=== PATIENT | male | born 1965 | race American Indian/Alaskan Native ===

== ENCOUNTER 2017-04-23 21:52 | Emergency (ER) | payer MEDICAID ==
[~2017-04-23] VITALS: Ht 165.1 cm; Wt 70.0 kg
[2017-04-23 21:55] VITALS: BP 139/83
== END 2017-04-24 02:06 | disposition home or self-care (01) ==
LOC: ED 04-24 01:38
DX: F10.120 Alcohol abuse with intoxication, uncomplicated (principal)
CPT/HCPCS: 99283

== ENCOUNTER 2017-09-16 02:28 | Emergency (ER) | payer MEDICAID ==
[~2017-09-16] VITALS: Ht 172.7 cm; Wt 59.0 kg
[2017-09-16 02:30] VITALS: BP 129/83
== END 2017-09-16 03:32 | disposition home or self-care (01) ==
LOC: ED 02:48
DX: F41.1 Generalized anxiety disorder (principal); F29 Unspecified psychosis not due to a substance or known physiological condition; M54.9 Dorsalgia, unspecified; G89.29 Other chronic pain
CPT/HCPCS: 99284

== ENCOUNTER 2017-09-29 13:34 | Emergency (ER) | payer MEDICAID ==
[~2017-09-29] VITALS: Ht 165.1 cm; Wt 55.0 kg
[2017-09-29] MEDS ORDERED: SODIUM CHLORIDE 0.9% 1,000ML IVBOLUS ONE (15:00)
[2017-09-29] MEDS ORDERED: AZITHROMYCIN 250 MG TABLET ONE (15:00)
[2017-09-29] MEDS ORDERED: AZITHROMYCIN 500 MG TABLET PO ONE (15:00)
[2017-09-29] MEDS ORDERED: CEFTRIAXONE PMX 1GM/50ML 50 ML IVPB ONE (15:00)
[2017-09-29] MEDS ORDERED: CEFTRIAXONE PMX 1GM/50ML 50 ML ONE (15:00)
[2017-09-29 16:23] VITALS: BP 122/72
== END 2017-09-29 17:34 | disposition home or self-care (01) ==
LOC: ED 17:08
DX: J18.9 Pneumonia, unspecified organism (principal); F41.9 Anxiety disorder, unspecified; M19.90 Unspecified osteoarthritis, unspecified site; F17.200 Nicotine dependence, unspecified, uncomplicated
CPT/HCPCS: 71045; 93005; 96365; 99284; J0696; J7030

== ENCOUNTER 2017-10-25 15:54 | Emergency (ER) | payer MEDICAID ==
[~2017-10-25] VITALS: Ht 177.8 cm; Wt 78.3 kg
[2017-10-25 17:07] VITALS: BP 108/82
== END 2017-10-25 19:44 | disposition home or self-care (01) ==
LOC: EDBD 15:54 → MERGE 15:54 → ED 19:24
DX: F10.120 Alcohol abuse with intoxication, uncomplicated (principal)
CPT/HCPCS: 99283

== ENCOUNTER 2017-11-18 20:22 | Emergency (ER) | payer MEDICAID ==
[~2017-11-18] VITALS: Ht 165.1 cm; Wt 57.4 kg
[2017-11-18 20:27] VITALS: BP 124/81
== END 2017-11-18 22:49 | disposition home or self-care (01) ==
LOC: ED 22:23
DX: T33.829A Superficial frostbite of unspecified foot, initial encounter (principal); M54.9 Dorsalgia, unspecified; G89.29 Other chronic pain; Z59.0 Homelessness; E11.9 Type 2 diabetes mellitus without complications; F10.20 Alcohol dependence, uncomplicated; F41.9 Anxiety disorder, unspecified; X31.XXXA Exposure to excessive natural cold, initial encounter; Y93.89 Activity, other specified; Y99.8 Other external cause status; Y92.89 Other specified places as the place of occurrence of the external cause
CPT/HCPCS: 99284

== ENCOUNTER 2017-12-02 17:53 | Emergency (ER) | payer MEDICAID ==
[~2017-12-02] VITALS: Ht 167.6 cm; Wt 57.5 kg
[2017-12-02 17:55] VITALS: BP 146/96
[2017-12-02] MEDS ORDERED: LIDOCAINE-MPF 1%, 5ML INFIL ONE (18:30)
[2017-12-02] MEDS ORDERED: DIPH,PERTUSS(ACELL),TET VAC/PF 0.5 ML IM-VACC ONE (18:30)
[2017-12-02] MEDS ORDERED: BACITRACIN ZINC OINT 500U/GM, 0.9 GM ONE (21:11)
== END 2017-12-02 22:13 | disposition home or self-care (01) ==
LOC: ED 21:03
DX: S01.412A Laceration without foreign body of left cheek and temporomandibular area, initial encounter (principal); F10.220 Alcohol dependence with intoxication, uncomplicated; I10 Essential (primary) hypertension; G89.29 Other chronic pain; M19.90 Unspecified osteoarthritis, unspecified site; F17.200 Nicotine dependence, unspecified, uncomplicated; X58.XXXA Exposure to other specified factors, initial encounter; Y93.89 Activity, other specified; Y92.488 Other paved roadways as the place of occurrence of the external cause; Y99.8 Other external cause status
CPT/HCPCS: 12011; 70450; 70486; 99284

== ENCOUNTER 2017-12-09 03:32 | Emergency (ER) | payer MEDICAID ==
[~2017-12-09] VITALS: Ht 165.1 cm; Wt 59.2 kg
[2017-12-09 04:43] VITALS: BP 135/75
== END 2017-12-09 04:45 | disposition home or self-care (01) ==
LOC: ED 04:39
DX: F10.229 Alcohol dependence with intoxication, unspecified (principal); I10 Essential (primary) hypertension
CPT/HCPCS: 99281

== ENCOUNTER 2018-03-16 05:25 | Emergency (ER) | payer MEDICAID ==
[~2018-03-16] VITALS: Ht 175.3 cm; Wt 69.0 kg
[2018-03-16 08:41] VITALS: BP 122/71
== END 2018-03-16 10:10 | disposition home or self-care (01) ==
LOC: ED 06:09
DX: F10.220 Alcohol dependence with intoxication, uncomplicated (principal); I10 Essential (primary) hypertension; G89.29 Other chronic pain; Z79.899 Other long term (current) drug therapy
CPT/HCPCS: 36415; 70450; 72020; 72050; 80307; 99285

== ENCOUNTER 2018-03-23 19:00 | Emergency (ER) | payer MEDICAID ==
[~2018-03-23] VITALS: Ht 170.2 cm; Wt 66.0 kg
[2018-03-23 23:32] VITALS: BP 112/81
== END 2018-03-23 23:38 | disposition home or self-care (01) ==
LOC: ED 19:47
DX: F10.220 Alcohol dependence with intoxication, uncomplicated (principal); G31.2 Degeneration of nervous system due to alcohol; Z79.899 Other long term (current) drug therapy
CPT/HCPCS: 36415; 80307; 99283

== ENCOUNTER 2018-03-25 05:19 | Emergency (ER) | payer MEDICAID ==
[~2018-03-25] VITALS: Ht 165.1 cm; Wt 54.5 kg
[2018-03-25 05:32] VITALS: BP 97/79
== END 2018-03-25 06:09 | disposition home or self-care (01) ==
LOC: ED 06:02
DX: R42 Dizziness and giddiness (principal); I10 Essential (primary) hypertension
CPT/HCPCS: 93005; 99283

== ENCOUNTER 2019-02-20 21:37 | Emergency (ER) | payer MEDICAID ==
[~2019-02-20] VITALS: Ht 165.1 cm; Wt 62.0 kg
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
[2019-02-20] MEDS ORDERED: LIDOCAINE 2%, 20ML INFIL ONE (22:00)
[2019-02-20] MEDS ORDERED: LIDOCAINE-MPF 1%, 5ML ONE (22:06)
--- NOTE | 2019-02-20 22:12 | NUR ---
PT TO CT
[2019-02-20] MEDS ORDERED: PLEASE ENTER HEIGHT AND WEIGHT MC SCH (22:30)
[2019-02-20 22:42] VITALS: BP 119/81
--- NOTE | 2019-02-20 22:43 | NUR ---
PT RESTING CALMLY, MONITORS IN PLACE, CALL LIGHT WITHIN REACH. AWAITING CT RESULTS
== END 2019-02-20 23:30 | disposition home or self-care (01) ==
LOC: ED 23:23
DX: S06.0X0A Concussion without loss of consciousness, initial encounter (principal); S01.511A Laceration without foreign body of lip, initial encounter; I10 Essential (primary) hypertension; F17.200 Nicotine dependence, unspecified, uncomplicated; Y04.8XXA Assault by other bodily force, initial encounter; Y93.89 Activity, other specified; Y92.89 Other specified places as the place of occurrence of the external cause; Y99.8 Other external cause status
CPT/HCPCS: 12051; 70450; 70486; 72125; 99285

== ENCOUNTER 2019-04-16 16:01 | Emergency (ER) | payer MEDICAID ==
[~2019-04-16] VITALS: Ht 165.1 cm; Wt 52.0 kg
[2019-04-16 18:06] VITALS: BP 114/83
== END 2019-04-16 18:10 | disposition home or self-care (01) ==
LOC: ED 18:00
DX: G89.11 Acute pain due to trauma (principal); M25.551 Pain in right hip; F17.200 Nicotine dependence, unspecified, uncomplicated; W18.30XA Fall on same level, unspecified, initial encounter; Y93.89 Activity, other specified; Y92.410 Unspecified street and highway as the place of occurrence of the external cause; Y99.8 Other external cause status
CPT/HCPCS: 99283

== ENCOUNTER 2019-09-21 10:41 | Emergency (ER) | payer MEDICAID ==
[~2019-09-21] VITALS: Ht 165.1 cm; Wt 54.0 kg
--- NOTE | 2019-09-21 10:54 | NUR ---
LILA. REPORT RECEIVED FROM EMS. PT C/O LEFT SIDED AGUILAR SINCE THIS AM. DENIES N/V/D. PT'S AOX4. RESPS EVEN AND UNLABORED. BP/SPO2 MONITORS IN PLACE. CALL LIGHT WITHIN REACH.
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
[2019-09-21] MEDS ORDERED: MECLIZINE CHEWABLE 25 MG TAB ONE (11:26)
--- NOTE | 2019-09-21 11:29 | NUR ---
pt medicated per emar. pt tolerated well.
[2019-09-21] MEDS ORDERED: MECLIZINE CHEWABLE 25 MG TAB PO ONE (11:30)
--- NOTE | 2019-09-21 11:37 | NUR ---
PT MEDICATED PER EMAR. PT TOLERATED WELL.
--- NOTE | 2019-09-21 11:37 | NUR ---
Note shira in EDM - 09/21/19 at 1144 by CIRILO PT REQUESTING WATER/FOOD. THIS RN ASKED EDMD AND EDMD SAID NO WATER/FOOD AT THIS TIME. PT NOTIFIED.
[2019-09-21 11:39] LABS: BASOPHILS # (AUTO) 0.02 x10^3/uL (0-0.1); BASOPHILS % (AUTO) 1 % (0-1); EOSINOPHILS # (AUTO) 0.01 x10^3/uL (0-0.4); EOSINOPHILS % (AUTO) 0 % (1-7); LYMPHOCYTES # (AUTO) 0.89 x10^3/uL (1-3.4); LYMPHOCYTES % (AUTO) 18 % (22-44); MD NO; MEAN CORPUSCULAR HEMOGLOBIN 34.9 pg (27.5-34.5); MEAN CORPUSCULAR VOLUME 102.6 fL (81-97); MONOCYTES # (AUTO) 0.28 x10^3/uL (0.2-0.8); MONOCYTES % (AUTO) 6 % (2-9); NEUTROPHILS % (AUTO) 76 % (42-75); PLATELET COUNT 299 x10^3/uL (130-400); RED BLOOD COUNT 4.15 x10^6/uL (4.38-5.82); RED CELL DISTRIBUTION WIDTH 15.5 % (9.4-14.8)
--- NOTE | 2019-09-21 11:44 | NUR ---
URINAL AT BEDSIDE. THIS RN ASKED URINE SAMPLE. PT STATES "I CAN'T PEE. I NEED FOOD AND WATER." THIS RN ASKED EDMD AND EDMD SAID NO FOOD/WATER AT THIS TIME. PT NOTIFIED. PT STATES " I CAN'T PEE." EDMD NOTIFIED.
[2019-09-21 11:47] LABS: ALBUMIN 3.6 g/dL (3.4-5.0); ANION GAP 6 mmol/L (5-15); CALCIUM 8.6 mg/dL (8.5-10.1); CHLORIDE 111 mmol/L (98-107); CREATININE 0.68 mg/dL (0.7-1.3)
--- NOTE | 2019-09-21 12:21 | NUR ---
PT IN CT AT THIS TIME.
--- NOTE | 2019-09-21 12:57 | NUR ---
PT PROVIDED URINE SAMPLE AT THIS TIME. UA SENT.
--- NOTE | 2019-09-21 13:13 | NUR ---
PT RUDE AND ARGUING WITH THIS RN. PT KEEPS SAYING"I NEED FOOD AND WATER". PT BEING EDUCATED REGARDING WANTING FOOD/WATER.
[2019-09-21 13:18] LABS: AMPHETAMINE SCREEN, URINE Negative (Negative); BARBITURATE SCREEN, URINE Negative (Negative); BENZODIAZEPINE SCREEN, URINE Negative (Negative); CANNABINOID SCREEN, URINE Positive (Negative); COCAINE SCREEN, URINE Negative (Negative); METHADONE SCREEN, URINE Negative (Negative); OPIATE SCREEN, URINE Negative (Negative)
[2019-09-21 13:46] VITALS: BP 124/76
--- NOTE | 2019-09-21 14:06 | NUR ---
Patient given discharge instructions and they have confirmed that they understand the instructions. Patient ambulatory with steady gait. pt didin't wanna leave and change. security paged. pt amb to exit with security.
== END 2019-09-21 14:08 | disposition home or self-care (01) ==
LOC: ED 14:02
DX: R51 Headache (principal); R42 Dizziness and giddiness; I10 Essential (primary) hypertension; M19.90 Unspecified osteoarthritis, unspecified site; F17.200 Nicotine dependence, unspecified, uncomplicated; Z72.9 Problem related to lifestyle, unspecified; Z87.01 Personal history of pneumonia (recurrent)
CPT/HCPCS: 36415; 70450; 80048; 80307; 82040; 85025; 93005; 99284

== ENCOUNTER 2021-02-10 06:40 | Inpatient (IN) | payer MEDICAID ==
[~2021-02-10] VITALS: Ht 165.1 cm; Wt 55.2 kg
[2021-02-10 07:25] LABS: BASOPHILS % (AUTO) 1 % (0-1); EOSINOPHILS % (AUTO) 1 % (1-7); LYMPHOCYTES % (AUTO) 13 % (22-44); MD NO; MEAN CORPUSCULAR HEMOGLOBIN 32.2 pg (27.5-34.5); MEAN CORPUSCULAR HGB CONC 34.2 g/dL (33.2-36.2); MEAN PLATELET VOLUME 6.6 fL (7.4-10.4); MONOCYTES % (AUTO) 7 % (2-9); NEUTROPHILS % (AUTO) 79 % (42-75); PLATELET COUNT 300 x10^3/uL (130-400); RED BLOOD COUNT 4.25 x10^6/uL (4.38-5.82); RED CELL DISTRIBUTION WIDTH 14.1 % (9.4-14.8)
[2021-02-10 07:37] LABS: ALANINE AMINOTRANSFERASE 18 U/L (12-78); ALBUMIN 4.2 g/dL (3.4-5.0); ANION GAP 8 mmol/L (5-15); CALCIUM 9.3 mg/dL (8.5-10.1); CHLORIDE 105 mmol/L (98-107); SALICYLATE LEVEL < 1.7 mg/dL (2.8-20.0)
[2021-02-10 07:39] LABS: ALKALINE PHOSPHATASE 87 U/L (45-117); BILIRUBIN,TOTAL 0.7 mg/dL (0.2-1.0); CREATININE 0.78 mg/dL (0.7-1.3); TOTAL PROTEIN 7.9 g/dL (6.4-8.2)
--- NOTE | 2021-02-10 08:31 | NUR ---
pt ambulated to bathroom and back with use of walker and standby assist. pt agitated easily and resistant to care.
[2021-02-10] MEDS ORDERED: SODIUM CHLORIDE 0.9% 1,000ML IVBOLUS ONE (11:00)
--- NOTE | 2021-02-10 11:50 | NUR ---
PT REFUSED IV AND IVF AT THIS TIME.
--- NOTE | 2021-02-10 12:11 | NUR ---
UPON ENTRY TO PT ROOM FLOOR HAS FLUID ON FLOOR. PT REPORTS "ILL JUST PISS AND SHIT ON THE FLOOR" PT REPEATEDLY DEMANDS FOOD AND DRINK. AGITATED. PT NOT REASSURABLE. DISCUSSED POC. PT REFUSES IV/IVF AGAIN. AWAITING FURTHER DIETARY ORDERS AT THIS TIME
--- NOTE | 2021-02-10 12:34 | NUR ---
PT REPEATEDLY PUSHING CALL LIGHT. PT AGITATED REPEATEDLY ASKING FOR FOOD AND WATER. PT DOES NOT RESPOND WELL TO REASSURANCE. WATER PROVIDED PER REQUEST. MEAL TRAY ORDERED.
--- NOTE | 2021-02-10 12:53 | NUR ---
PT PROVIDED WITH MEAL TRAY AND EXTRA MILK PER REQUEST. PT GRATEFULL. DENIES FURTHER NEEDS AT THIS TIME
--- NOTE | 2021-02-10 12:58 | NUR ---
DISCUSSED POC WITH DR PABLO. ROOM SECURED. BELONGINGS IN SECURE LOCKER. AWAITING PSYCH EVAL
--- NOTE | 2021-02-10 13:17 | NUR ---
BRIAN CORRAL AT BEDSIDE. ASSESSMENT IN PROGRESS
--- NOTE | 2021-02-10 14:15 | NUR ---
PT AMBULATED TO BATHROOM WITH WALKER ASSIST. STANDBY ASSIST. NEW LINENS PROVIDED. PT DENIES FURTHER NEEDS AT THIS TIME
--- NOTE | 2021-02-10 14:37 | NUR ---
GUSTAVO BENTLEY AT PT BEDSIDE
--- NOTE | 2021-02-10 15:12 | NUR ---
REPORT FROM REBA ETIENNE
--- NOTE | 2021-02-10 15:12 | NUR ---
PT YELLING AT EVERYONE PASSING BY ROOM. PT AGGITATED AND WANTING ANXIETY AND PAIN MEDS. PT TOLD THAT RN WILL BRING HIM SCHEDULED MEDICATIONS. PT STILL AGGITATED AND YELLING.
--- NOTE | 2021-02-10 15:13 | NUR ---
UA COLLECTED AND SENT TO LAB
[2021-02-10] MEDS ORDERED: NICOTINE 14MG/24 HR PATCH.TD24 ONE (15:14)
[2021-02-10] MEDS ORDERED: QUETIAPINE 25MG TABLET ONE (15:14)
[2021-02-10] MEDS ORDERED: SODIUM CHLORIDE FLUSH 10ML SYR IVF PRN (15:30)
[2021-02-10] MEDS: NICOTINE 14MG/24 HR PATCH.TD24 TD SCH (15:35)
[2021-02-10] MEDS: QUETIAPINE 25MG TABLET PO PRN (15:35)
[2021-02-10 15:39] LABS: AMPHETAMINE SCREEN, URINE Negative (Negative); BARBITURATE SCREEN, URINE Negative (Negative); BENZODIAZEPINE SCREEN, URINE Negative (Negative); CANNABINOID SCREEN, URINE Positive (Negative); COCAINE SCREEN, URINE Negative (Negative); METHADONE SCREEN, URINE Negative (Negative); OPIATE SCREEN, URINE Negative (Negative)
--- NOTE | 2021-02-10 15:44 | NUR ---
PT MUCH CALMER, REQUESTING ICE WATER
[2021-02-10] MEDS ORDERED: ONDANSETRON ODT 4 MG PO PRN (16:00)
[2021-02-10] MEDS ORDERED: ONDANSETRON 2MG/ML, 2ML IVPush PRN (16:00)
[2021-02-10] MEDS ORDERED: POTASSIUM CHLORIDE 20 MEQ TAB.ER.PRT PO ONE (16:00)
--- NOTE | 2021-02-10 16:29 | NUR ---
REPORT GIVEN TO ALLAN ETIENNE
[2021-02-10] MEDS: ACETAMINOPHEN 325 MG TABLET PO PRN (18:29)
[2021-02-10 20:16] VITALS: BP 121/77
[2021-02-10] MEDS: QUETIAPINE 100MG TABLET PO SCH (21:20)
[2021-02-10] MEDS: ENOXAPARIN 40 MG/0.4 ML SQ SCH (21:20)
[2021-02-11 01:06] VITALS: BP 120/71
[2021-02-11] MEDS: ACETAMINOPHEN 325 MG TABLET PO PRN ×3 (04:14→18:22)
[2021-02-11 06:17] LABS: ANION GAP 3 mmol/L (5-15); CALCIUM 9.2 mg/dL (8.5-10.1); CHLORIDE 108 mmol/L (98-107); CREATININE 0.88 mg/dL (0.7-1.3)
[2021-02-11 06:22] VITALS: BP 108/67
[2021-02-11] MEDS: QUETIAPINE 25MG TABLET PO PRN ×2 (08:21→18:21)
[2021-02-11] MEDS ORDERED: QUET100T PO (10:58)
[2021-02-11] MEDS ORDERED: NICO-486 TD (10:58)
[2021-02-11] MEDS ORDERED: ACET325T26 PO (10:58)
[2021-02-11 12:51] VITALS: BP 118/78
[2021-02-11] MEDS: NICOTINE 14MG/24 HR PATCH.TD24 TD SCH (15:51)
[2021-02-11 19:54] VITALS: BP 132/80
[2021-02-11] MEDS: ENOXAPARIN 40 MG/0.4 ML SQ SCH (20:41)
[2021-02-11] MEDS: QUETIAPINE 100MG TABLET PO SCH (20:41)
[2021-02-12 01:45] VITALS: BP 129/86
[2021-02-12] MEDS: ACETAMINOPHEN 325 MG TABLET PO PRN ×4 (01:49→19:43)
[2021-02-12 07:40] VITALS: BP 131/86
[2021-02-12] MEDS: QUETIAPINE 25MG TABLET PO PRN ×2 (08:01→14:05)
[2021-02-12 13:22] VITALS: BP 111/72
[2021-02-12] MEDS: NICOTINE 14MG/24 HR PATCH.TD24 TD SCH (14:05)
[2021-02-12 18:15] VITALS: BP 115/72
[2021-02-12 19:41] VITALS: BP 138/77
[2021-02-12] MEDS: QUETIAPINE 100MG TABLET PO SCH (19:43)
[2021-02-13 02:57] VITALS: BP 120/77
[2021-02-13] MEDS: QUETIAPINE 25MG TABLET PO PRN ×2 (03:04→12:52)
[2021-02-13] MEDS: ACETAMINOPHEN 325 MG TABLET PO PRN ×3 (03:04→19:38)
[2021-02-13 06:46] VITALS: BP 100/63
[2021-02-13 12:18] VITALS: BP 129/85
[2021-02-13] MEDS: NICOTINE 14MG/24 HR PATCH.TD24 TD SCH (15:33)
[2021-02-13 19:07] VITALS: BP 126/79
[2021-02-13] MEDS: QUETIAPINE 100MG TABLET PO SCH (20:53)
[2021-02-14] MEDS: ACETAMINOPHEN 325 MG TABLET PO PRN ×4 (02:14→20:07)
[2021-02-14 02:15] VITALS: BP 117/75
[2021-02-14 07:46] VITALS: BP 112/75
[2021-02-14 13:19] VITALS: BP 125/82
[2021-02-14] MEDS: NICOTINE 14MG/24 HR PATCH.TD24 TD SCH (13:52)
[2021-02-14 18:27] VITALS: BP 118/79
[2021-02-14] MEDS: QUETIAPINE 100MG TABLET PO SCH (20:07)
[2021-02-15 03:41] VITALS: BP 109/72
[2021-02-15] MEDS: ACETAMINOPHEN 325 MG TABLET PO PRN ×3 (03:44→20:10)
[2021-02-15 06:50] VITALS: BP 113/76
[2021-02-15 13:07] VITALS: BP 135/78
[2021-02-15] MEDS: QUETIAPINE 25MG TABLET PO PRN (13:46)
[2021-02-15] MEDS: NICOTINE 14MG/24 HR PATCH.TD24 TD SCH (15:45)
[2021-02-15 18:59] VITALS: BP 109/71
[2021-02-15] MEDS: QUETIAPINE 100MG TABLET PO SCH (20:11)
[2021-02-16 01:21] VITALS: BP 109/69
[2021-02-16] MEDS: ACETAMINOPHEN 325 MG TABLET PO PRN ×2 (03:50→09:30)
[2021-02-16 07:44] VITALS: BP 111/74
[2021-02-16] MEDS: QUETIAPINE 25MG TABLET PO PRN (09:30)
== END 2021-02-16 14:18 | disposition home or self-care (01) | DRG 58 ==
LOC: ED 08:47 → OBSVTOIN 11:00 → EDIP 11:00 → INTOOBSV 11:00 → 3N 16:54 → DCLOUNGE 02-16 14:11 → 4WST 02-16 14:22
PROVIDERS: ADMIT Emergency Medicine; ATTEND Hospitalist
DX: R27.0 Ataxia, unspecified (principal); Z99.11 Dependence on respirator [ventilator] status; R45.851 Suicidal ideations; F10.10 Alcohol abuse, uncomplicated; F12.10 Cannabis abuse, uncomplicated; F17.210 Nicotine dependence, cigarettes, uncomplicated; F41.1 Generalized anxiety disorder; F43.20 Adjustment disorder, unspecified; I10 Essential (primary) hypertension; R62.7 Adult failure to thrive; R73.03 Prediabetes; E87.6 Hypokalemia; F84.0 Autistic disorder; F32.9 Major depressive disorder, single episode, unspecified; G89.29 Other chronic pain; M19.90 Unspecified osteoarthritis, unspecified site; M54.9 Dorsalgia, unspecified; Z79.899 Other long term (current) drug therapy; Z83.3 Family history of diabetes mellitus; Z93.0 Tracheostomy status; Z79.891 Long term (current) use of opiate analgesic; Z79.01 Long term (current) use of anticoagulants; Z91.010 Allergy to peanuts; Z91.013 Allergy to seafood; Z87.820 Personal history of traumatic brain injury
CPT/HCPCS: 36415; 80048; 80053; 80299; 80307; 80320; 80329; 83036; 85025; G0378; J1650; G0480

== ENCOUNTER 2021-03-15 19:02 | Emergency (ER) | payer MEDICAID ==
[~2021-03-15] VITALS: Ht 165.1 cm; Wt 55.0 kg
[~2021-03-15 19:02] MED LIST: ACET325T26 PO; NICO-486 TD; QUET100T PO
[2021-03-15 19:10] VITALS: BP 108/76
--- NOTE | 2021-03-15 19:25 | NUR ---
Pt being aggressive in lobby, yelling at patients and staff. Security called.
--- NOTE | 2021-03-15 19:29 | NUR ---
patient yelling in the lobby. + alcohol intoxication, ambulatory. other patients waiting in the lobby complaining. security involved. escorted out.
--- NOTE | 2021-03-15 19:33 | NUR ---
Security dealing with patient, he is being aggressive and belignerent with customers and staff.
== END 2021-03-15 19:37 | disposition left against medical advice (07) ==
LOC: ED 19:12
DX: F10.129 Alcohol abuse with intoxication, unspecified (principal); R51.9 Headache, unspecified; Z59.0 Homelessness; Y90.0 Blood alcohol level of less than 20 mg/100 ml
CPT/HCPCS: 99281; 99283

== ENCOUNTER 2021-03-22 15:42 | Emergency (ER) | payer MEDICAID ==
[~2021-03-22] VITALS: Ht 165.1 cm; Wt 55.0 kg
--- NOTE | 2021-03-22 17:11 | NUR ---
PT REFUSING VITAL SIGNS AND MONITORING AT THIS TIME.
--- NOTE | 2021-03-22 17:29 | NUR ---
PT TO CT AT THIS TIME.
--- NOTE | 2021-03-22 18:49 | NUR ---
REPORT RECIEVED FROM JAIMIE SIMMONS
--- NOTE | 2021-03-22 18:49 | NUR ---
REPORT RECIEVED FROM JAIMIE SIMMONS
[2021-03-22] MEDS ORDERED: ACETAMINOPHEN 500 MG TABLET PO ONE (19:30)
[2021-03-22] MEDS ORDERED: ACETAMINOPHEN 500 MG TABLET ONE (19:38)
--- NOTE | 2021-03-22 19:47 | NUR ---
UNABLE TO ROAD TEST AT THIS TIME, PT STILL SLURRING SPEECH AND HAVING DIFFICULTY GETTING OUT OF BED. CONTINUOUS PULSE OX IN PLACE. VSS. PT MEDICATED PER EMAR
[2021-03-22 20:58] VITALS: BP 119/82
== END 2021-03-22 21:08 | disposition home or self-care (01) ==
LOC: ED 17:07
DX: S16.1XXA Strain of muscle, fascia and tendon at neck level, initial encounter (principal); S00.03XA Contusion of scalp, initial encounter; F10.220 Alcohol dependence with intoxication, uncomplicated; M19.90 Unspecified osteoarthritis, unspecified site; I10 Essential (primary) hypertension; W01.0XXA Fall on same level from slipping, tripping and stumbling without subsequent striking against object, initial encounter; Y93.89 Activity, other specified; Y92.89 Other specified places as the place of occurrence of the external cause; Y99.8 Other external cause status; Y90.0 Blood alcohol level of less than 20 mg/100 ml
CPT/HCPCS: 70450; 72125; 99285

== ENCOUNTER 2021-04-03 22:04 | Emergency (ER) | payer MEDICAID ==
[~2021-04-03] VITALS: Ht 165.1 cm; Wt 46.3 kg
--- NOTE | 2021-04-03 22:13 | NUR ---
pt bib [facility] for falling off his walker chair. pt states his back, hips and neck hurts. pt states he didn't hit his head. pt on isiah, placed on continuous monitoring.
[2021-04-03] MEDS ORDERED: ACETAMINOPHEN 500 MG TABLET PO ONE (22:30)
[2021-04-03] MEDS ORDERED: ACETAMINOPHEN 500 MG TABLET ONE (22:45)
--- NOTE | 2021-04-03 23:00 | NUR ---
pt resting on gurney, given tylenol, darwin crackers and milk, denies needs at this time.
--- NOTE | 2021-04-04 | NUR ---
pt resting on gurney, denies needs at this time.
[2021-04-04 02:25] VITALS: BP 108/65
--- NOTE | 2021-04-04 02:26 | NUR ---
Patient/Caregiver given discharge instructions and they have confirmed that they understand the instructions. Patient ambulatory with steady gait. pt given sandwich and milk
== END 2021-04-04 02:48 | disposition home or self-care (01) ==
LOC: ED 04-04 02:45
DX: S16.1XXA Strain of muscle, fascia and tendon at neck level, initial encounter (principal); S39.012A Strain of muscle, fascia and tendon of lower back, initial encounter; I10 Essential (primary) hypertension; F17.210 Nicotine dependence, cigarettes, uncomplicated; W01.0XXA Fall on same level from slipping, tripping and stumbling without subsequent striking against object, initial encounter; Y93.89 Activity, other specified; Y92.009 Unspecified place in unspecified non-institutional (private) residence as the place of occurrence of the external cause; Y99.8 Other external cause status
CPT/HCPCS: 72110; 72125; 99285; 99406